=== PATIENT | male | born 1980 | race Two or more races ===

== ENCOUNTER 2018-07-02 19:41 | Emergency (ER) | payer MEDICAID, OTHER ==
[~2018-07-02] VITALS: Ht 170.2 cm; Wt 79.4 kg
[2018-07-02 19:56] VITALS: BP 128/83
[2018-07-02 20:28] LABS: Alanine Aminotransferase 24 U/L (16-61); Albumin 4.5 g/dL (3.4-5.0); Alkaline Phosphatase 77 U/L (45-117); Anion Gap 10 (5-15); Aspartate Aminotransferase 11 U/L (15-37); BUN/Creatinine Ratio 12.1; Bilirubin, Total 0.5 mg/dL (0.2-1.0); Blood Urea Nitrogen 12 mg/dL (7-18); Calcium 9.2 mg/dL (8.5-10.1); Carbon Dioxide 23 mmol/L (21-32); Chloride 104 mmol/L (98-107); GFR African American 109 mL/min; GFR Non-African American 90 mL/min; Glucose 93 mg/dL (74-106); Magnesium 2.7 mg/dL (1.6-2.6); Potassium 3.8 mmol/L (3.5-5.1); Sodium 137 mmol/L (136-145); Total Protein 8.6 g/dL (6.4-8.2)
[2018-07-02 20:32] LABS: Basophils # (auto) 0 uL; Eosinophils # (auto) 0.1 uL; Mean Corpuscular Hgb Conc. 34.1 g/dL (32.0-36.0)
[2018-07-02 20:33] LABS: Basophils % (auto) 0.3 % (0.0-2.0); Eosinophils % (auto) 0.5 % (0.0-7.0); Hematocrit 50.7 % (41.0-53.0); Hemoglobin 17.3 g/dL (13.5-17.5); Lymphocytes % (auto) 17.4 % (10.0-50.0); Mean Corpuscular Hemoglobin 28.7 pg (28.0-32.0); Mean Corpuscular Volume 84.1 fL (80.0-100.0); Monocytes # (auto) 0.5 uL; Monocytes % (auto) 4.8 % (0.0-12.0); Neutrophils # (auto) 8.7 uL; Nucleated Red Blood Cells % 0.1 %; Platelet Count (auto) 269 10^3/uL (140-450); Red Blood Cells 6.02 10^6/uL (4.5-5.90); Red Cell Distribution Width 14.1 % (11.8-14.3); White Blood Cell 11.2 10^3/uL (4.4-10.8)
== END 2018-07-03 00:04 | disposition left against medical advice (07) ==
LOC: EDBD 19:41 → ER 19:41
DX: R06.02 Shortness of breath (principal); R07.89 Other chest pain; Z53.21 Procedure and treatment not carried out due to patient leaving prior to being seen by health care provider
CPT/HCPCS: 36415; 71045; 80053; 83735; 84484; 85025

== ENCOUNTER 2018-07-04 04:07 | Emergency (ER) | payer MEDICAID ==
[~2018-07-04] VITALS: Ht 170.2 cm; Wt 79.4 kg
[2018-07-04 04:30] VITALS: BP 128/88
== END 2018-07-04 04:32 | disposition left against medical advice (07) ==
LOC: ER 04:09
DX: R07.9 Chest pain, unspecified (principal); Z53.21 Procedure and treatment not carried out due to patient leaving prior to being seen by health care provider
CPT/HCPCS: 93005